=== PATIENT | male | born 1940 | race Hispanic/Latino ===

== ENCOUNTER → 2020-04-12 | Outpatient (CLI) | payer OTHER ==
[~2020-04-12] MED LIST: ATOR40TA71 PO; BIOT25008 PO; LORA10CA PO; METF-446 PO; METO50TA18 PO; TAMS0.4C32 PO
== END | disposition home or self-care (01) ==
LOC: SHCH 14:36
PROVIDERS: ATTEND Internal Medicine Cardiovascular Disease
DX: K21.9 Gastro-esophageal reflux disease without esophagitis (principal); I87.2 Venous insufficiency (chronic) (peripheral)
CPT/HCPCS: 93970

== ENCOUNTER → 2020-04-20 | Outpatient (CLI) | payer OTHER | END | disposition home or self-care (01) | LOC: OIH 14:09 | PROVIDERS: ATTEND Family Medicine | DX: M47.816 Spondylosis without myelopathy or radiculopathy, lumbar region (principal); M25.552 Pain in left hip | CPT/HCPCS: 72100; 73502 ==

== ENCOUNTER 2020-07-07 08:00 | Day surgery (SDC) | payer OTHER ==
[~2020-07-07] VITALS: Ht 170.2 cm; Wt 72.6 kg
[2020-07-07] VITALS (8 sets, daily range): BP systolic 97–136; BP diastolic 46–78
[~2020-07-07 08:00] MED LIST changes: +ALEN70TA69 PO; +ASCO250T70 PO; -BIOT25008 PO; +DONE10TA43 PO; +GLIM4TAB36 PO; +LATA7.5D OP; -LORA10CA PO; -METF-446 PO; +METF-527 PO; +MULT-1203 PO; +RIVA20TA PO; +SODIUM CHLORIDE 0.9% 1000ML 1,000 ML IV ONE
[2020-07-07] MEDS ORDERED: PROPOFOL 10 MG/ML 20ML VIAL IV ONE ×2 (10:31→10:41)
--- NOTE | 2020-07-07 11:55 | NUR ---
DC PT DC HOME VIA WC,NO DISTRESS NOTED PT ACCOMPANIED BY SPOUSE
== END 2020-07-07 11:55 | disposition home or self-care (01) ==
LOC: ENDO 08:00 → DAH 08:00 → ENDO 11:55
PROVIDERS: ATTEND Internal Medicine Gastroenterology
DX: R63.4 Abnormal weight loss (principal); K62.1 Rectal polyp; K29.70 Gastritis, unspecified, without bleeding; K22.8 Other specified diseases of esophagus; K63.89 Other specified diseases of intestine; K59.01 Slow transit constipation; Z95.1 Presence of aortocoronary bypass graft; I10 Essential (primary) hypertension; I25.10 Atherosclerotic heart disease of native coronary artery without angina pectoris; E11.9 Type 2 diabetes mellitus without complications; E78.5 Hyperlipidemia, unspecified; R13.10 Dysphagia, unspecified; Z95.0 Presence of cardiac pacemaker; F41.9 Anxiety disorder, unspecified; F32.9 Major depressive disorder, single episode, unspecified; Z96.642 Presence of left artificial hip joint; Z79.01 Long term (current) use of anticoagulants; Z79.84 Long term (current) use of oral hypoglycemic drugs; Z79.899 Other long term (current) drug therapy; Z20.828 Contact with and (suspected) exposure to other viral communicable diseases
CPT/HCPCS: 43239; 45380; 45385; 82948 ×2; 93005; A4215; A4221; A4222; A4223; A4606; A4620; A4649; A4657 ×3; A4663; C9803; J2704 ×2; J7030; U0003

== ENCOUNTER 2020-10-27 09:18 | Emergency (ER) | payer OTHER ==
[~2020-10-27 09:18] MED LIST changes: -ALEN70TA69 PO; +ALEN70TA80 PO; -SODIUM CHLORIDE 0.9% 1000ML 1,000 ML IV ONE
== END 2020-10-27 11:33 | disposition home or self-care (01) ==
LOC: EDH 09:18
DX: M54.6 Pain in thoracic spine (principal); I25.10 Atherosclerotic heart disease of native coronary artery without angina pectoris; E11.9 Type 2 diabetes mellitus without complications; I10 Essential (primary) hypertension; E78.5 Hyperlipidemia, unspecified; I48.91 Unspecified atrial fibrillation; Z88.2 Allergy status to sulfonamides